=== PATIENT | female | born 1985 | race Caucasian/White ===

== ENCOUNTER 2017-11-13 19:26 | Emergency (ER) | payer OTHER ==
[~2017-11-13] VITALS: Ht 160 cm; Wt 96.6 kg
[2017-11-13 19:45] VITALS: Ht 160 cm; Wt 96.6 kg
[2017-11-13 21:19] LABS: BASOPHIL % 0.5 % (0-2); PLATELET COUNT 152 x10^3mcL (130-400); RED CELL DISTRIBUTION WIDTH 13.3 % (11.5-14.5)
[2017-11-13 21:34] LABS: CALCIUM 8.5 mg/dL (8.5-10.1); CARBON DIOXIDE 27.2 mmol/L (21-32); CHLORIDE SERUM 102 mmol/L (98-107); CREATININE SERUM 1.1 mg/dL (0.6-1.0); GFR1 > 60 mL/min; GLUCOSE SERUM 81 mg/dL (74-106); POTASSIUM SERUM 3.5 mmol/L (3.5-5.1); SODIUM SERUM 140 mmol/L (136-145)
[2017-11-13 22:05] LABS: ALKALINE PHOSPHATASE 76 U/L (46-116); ALT/SGPT 103 U/L (14-59); BILIRUBIN TOTAL 0.2 mg/dL (0.20-1.00); FREE T4 0.76 ng/dL (0.76-1.46); TOTAL PROTEIN, SERUM 8.1 g/dL (6.4-8.2)
[2017-11-13 22:06] LABS: ALBUMIN 4.1 g/dL (3.4-5.0)
[2017-11-13 22:07] LABS: AST/SGOT 59 U/L (15-37)
[2017-11-14 00:24] LABS: microscopic required? NO
[2017-11-14 00:37] LABS: urine erythrocyte NEGATIVE (NEGATIVE)
[2017-11-14 01:12] VITALS: BP 105/58
== END 2017-11-14 01:12 | disposition home or self-care (01) ==
LOC: ED 19:26
PROVIDERS: Emergency Medicine
DX: B34.9 Viral infection, unspecified (principal)
CPT/HCPCS: 84439; 87804; J7030; Q0092

== ENCOUNTER 2018-11-04 15:10 | Emergency (ER) | payer OTHER ==
[2018-11-04 15:23] VITALS: Ht 160 cm
[2018-11-04 18:29] VITALS: BP 127/93
== END 2018-11-04 18:29 | disposition home or self-care (01) ==
LOC: ED 15:10
DX: R07.89 Other chest pain (principal)